=== PATIENT | female | born 1950 | race Caucasian/White ===

== ENCOUNTER 2018-12-27 19:51 | Inpatient (IN) | payer BC ==
[~2018-12-27] VITALS: Ht 172.7 cm; Wt 92.6 kg
[2018-12-27] VITALS: PULSE 86
[~2018-12-27 19:51] MED LIST: AMLO5TAB4; BENA40TA56; METO-53; TYL500 PO
[2018-12-27] MEDS ORDERED: ASPIRIN 325 MG TAB PO STA (20:04)
[2018-12-27] MEDS ORDERED: SOD CHLORIDE 0.9% 1,000 ML IV STA ×2 (20:04→21:35)
--- NOTE | 2018-12-27 20:10 | ERD ---
ER Documentation Chief Complaint Chief Complaint HPI This is a 68-year-old female who has a past medical history of hypertension and positive tobacco use. The patient was at work when she suddenly developed a sudden onset of chest pressure midsternal. The chest pressure did not radiate to the neck arm back or jaw. The patient sat down and she is felt very lightheaded and dizzy and felt as though she was in a pass out but did not have a complete transient loss of consciousness. She did indicate she also had experienced chest pain 12 hours prior to arrival which lasted for several minutes but did resolve. The patient is been compliant with all of her medications. She states she has a strong family history of coronary artery disease in both parents and her brother. She had no associated symptoms of shortness of breath. She denied a headache but as stated above she did feel lightheaded and dizzy. She had no changes in vision. She said no recent travel or prolonged immobilization. ROS All systems reviewed and are negative except as per history of present illness. Medications Home Meds Reported Medications Acetaminophen* (Tylenol*) 500 Mg Tab, 1000 MG PO Q4H PRN for PAIN AND OR ELEVATED TEMP, TAB 09/05/14 Amlodipine Besylate* (Norvasc*) 5 Mg Tablet, BID 11/23/12 Metoprolol (Lopressor) 50 Mg Tablet, BID 11/23/12 Benazepril Hcl* (Benazepril Hcl*) 40 Mg Tablet, BID 11/23/12 Allergies Allergies: Coded Allergies: meperidine (Verified Allergy, Intermediate, NAUSEA/VOMITING, 09/05/14) codeine (Verified Allergy, Mild, 11/23/12) iodine (Verified Allergy, Mild, 11/23/12) propoxyphene HCl (Verified Allergy, Mild, 11/23/12) PMhx/Soc History of Surgery: Yes (S/P L4-5 HEMILAMINECTOMY/DECOMPRESSION 09-05-14) Anesthesia Reaction: No Hx Neurological Disorder: No Hx Respiratory Disorders: Yes (ASTHMA, BRONCHITIS) Hx Cardiac Disorders: Yes (HTN) Hx Psychiatric Problems: No Hx Miscellaneous Medical Probl: Yes (HTN,ASTHMA,MIGRAINE HEADACHES,HTN,SINUS SX,HYSTERECTOMY) Hx Alcohol Use: No Hx Substance Use: No Hx Tobacco Use: No Physical Exam Vitals Vital Signs Date Temp Pulse Resp B/P (MAP) Pulse Ox O2 O2 Flow FiO2 Time Delivery Rate 12/27/18 77 20 99/57 (71) 99 Nasal 2.0 21:09 Cannula 12/27/18 Nasal 2 20:07 Cannula 12/27/18 98.2 83 22 89/68 (75) 100 20:03 Physical Exam Constitutional:Well-developed. Well-nourished. HEENT:Normocephalic. Atraumatic.Pupils were equal round reactive to light. Moist mucous membranes.No tonsillar exudates. Neck: No nuchal rigidity. No lymphadenopathy. No posterior cervical spine tenderness or step-offs. Respiratory: Not using accessory muscles of respiration.Lungs were clear to auscultation bilaterally. No rhonchi. No rales. No wheezing. Cardiovascular: Regular rate regular rhythm.No murmurs. No rubs were appreciated.S1, S2 normal. Distal pulses are palpable 2+ bilaterally. GI: Abdomen was soft. Nontender. Non Distended. No pulsatile abdominal masses or bruits. No rebound. No guarding. Bowel sounds were present and normal. Muscle skeletal: Full range of motion of both the upper and lower extremities bilaterally.Normal muscle tone.No assymetrical calf tenderness or swelling. Skin: Diaphoretic with no petechia, no purpura. No lesions on the palms or the soles of the feet. No maculopapular rash. NEURO: Patient was alert, awake, orientated x3.No facial droop. Gait observed and normal with no ataxia.Speech had regular rate and rhythm. No focal neurological deficits. Result Diagram: 12/27/18200512/27/182005 Results 24 hrs Laboratory Tests Test 12/27/18 20:06 White Blood Count 11.1 10^3/ul Red Blood Count 5.04 10^6/ul Hemoglobin 14.4 g/dl Hematocrit 45.0 % Mean Corpuscular Volume 89.3 fl Mean Corpuscular Hemoglobin 28.6 pg Mean Corpuscular Hemoglobin Concent 32.0 g/dl Red Cell Distribution Width 13.5 % Platelet Count 230 10^3/UL Mean Platelet Volume 9.5 fl Immature Granulocytes % 0.600 % Neutrophils % 71.6 % Lymphocytes % 20.8 % Monocytes % 5.8 % Eosinophils % 1.0 % Basophils % 0.2 % Nucleated Red Blood Cells % 0.0 /100WBC Immature Granulocytes # 0.070 10^3/ul Neutrophils # 7.9 10^3/ul Lymphocytes # 2.3 10^3/ul Monocytes # 0.6 10^3/ul Eosinophils # 0.1 10^3/ul Basophils # 0.0 10^3/ul Nucleated Red Blood Cells # 0.0 10^3/ul Prothrombin Time 12.6 Sec Prothrombin Time Ratio 1.0 INR International Normalized Ratio 0.93 Activated Partial Thromboplast Time 25.7 Sec Sodium Level 144 mmol/L Potassium Level 4.5 mmol/L Chloride Level 105 mmol/L Carbon Dioxide Level 24 mmol/L Anion Gap 15 Blood Urea Nitrogen 21 mg/dl Creatinine 1.58 mg/dl Est Glomerular Filtrat Rate mL/min 33 mL/min Glucose Level 138 mg/dl Calcium Level 9.9 mg/dl Total Bilirubin 0.4 mg/dl Direct Bilirubin 0.00 mg/dl Indirect Bilirubin 0.4 mg/dl Aspartate Amino Transf (AST/SGOT) 29 IU/L Alanine Aminotransferase (ALT/SGPT) 19 IU/L Alkaline Phosphatase 88 IU/L Creatine Kinase 108 IU/L Creatine Kinase Index 3.7 Creatinine Kinase MB (Mass) 4.03 ng/ml Troponin I 0.771 ng/ml B-Type Natriuretic Peptide 2590 PG/ML Total Protein 7.8 g/dl Albumin 4.1 g/dl Globulin 3.70 g/dl Albumin/Globulin Ratio 1.10 Lipase 38 U/L Current Medications Medications Dose Sig/Ian Start Time Status Last (Trade) Ordered Route PRN Stop Time Admin Dose Reason Admin Sodium 1,000 ml @ Q1H STAT 12/27/18 DC 12/27/18 Chloride 1,000 mls/hr IV 20:04 20:22 12/27/18 21:03 Aspirin 325 mg ONCE STAT 12/27/18 DC 12/27/18 (Aspirin) PO 20:04 20:22 12/27/18 20:05 Ketorolac 30 mg ONCE STAT 12/27/18 DC 12/27/18 Tromethamine IV 20:45 20:55 (Toradol) 12/27/18 20:46 Procedures/MDM The patient presented to the emergency department with chest pain. My clinical evaluation and workup was to distinguish minor causes of chest pain from acute life threatening conditions such as myocardial infarction, pulmonary embolism, aortic dissection, esophageal rupture, cardiac tamponade. The patient was placed on a cardiac cath technician and continuous pulse oximetry. IV access established by nursing staff. She was hypotensive with a blood pressure 79/59. She had been compliant with her antihypertensive medications. The patient was given a liter bolus of normal saline. She was also given aspirin. 12 Lead EKG tracing ordered and reviewed by myself showed: Normal sinus rhythm of 83 bpm and no arrhythmia. NM interval normal. QRS duration normal. No ST segment elevation. PVCs No ST segment depression. No changes consistent with acute ischemia. She had a chest radiograph which showed no infiltrates no pneumothorax or pleural effusions. The chest radiograph showed the following: Linear atelectatic changes in the right mid lung and bilateral lower lobes. No focal infiltrates. The patient did have improvement of her blood pressure after receiving IV fluids. The patient's troponin was elevated at 0.771 consistent with a non-D[place]. I spoke with the clerical warehouseman Dr. Davis who kindly stated he will be consulted on the case. The patient had significant improvement in her symptoms and now stated her chest pain was initially 8 out of 10 in intensity was now 2 out of 10 in intensity. The patient has not anaphylactic reaction to iodine. The patient will be premedicated as the patient will likely require an angiogram upon admission. The patient received prophylaxis Lovenox. The patient will be admitted in serious condition to her primary care physician Dr. Cornejo. Departure Diagnosis: Primary Impression: Hypotension Hypotension type: unspecified hypotension type Qualified Codes: I95.9 - Hypotension, unspecified Additional Impressions: Dizziness Non-STEMI (non-ST elevated myocardial infarction) Condition: Serious DIANNA LANGLEY MD Dec 27, 2018 20:10
[2018-12-27] MEDS ORDERED: KETOROLAC 30 MG INJ IV STA (20:45)
[2018-12-27] MEDS ORDERED: ATORVASTATIN 40 MG TAB PO ONE (21:30)
[2018-12-27] MEDS ORDERED: predniSONE 20 MG TAB PO ONE (21:30)
[2018-12-27] MEDS ORDERED: ENOXAPARIN 100 MG/ML SYG SC ONE (22:00)
[2018-12-27] MEDS ORDERED: ACETAMINOPHEN 325 MG TAB PO PRN (22:00)
[2018-12-27] MEDS ORDERED: ONDANSETRON 4 MG INJ IV PRN (22:00)
[2018-12-27] MEDS: SOD CHLORIDE 0.9% 1,000 ML IV SCH (22:32)
[2018-12-27 23:05] VITALS: BP 92/54; PULSE 84; PULSE 86; RESP 19
[2018-12-27 23:09] VITALS: Ht 172.7 cm; Wt 92.6 kg
[2018-12-28] VITALS (43 sets, daily range): BP systolic 88–129; BP diastolic 52–77; PULSE 70–90; RESP 15–22
[2018-12-28] MEDS ORDERED: IBUP-1542 PO (00:11)
[2018-12-28] MEDS ORDERED: ACETAMINOPHEN 325 MG TAB PO PRN (01:00)
[2018-12-28] MEDS ORDERED: predniSONE 20 MG TAB PO ONE ×2 (02:00→06:00)
[2018-12-28] MEDS ORDERED: FAMOTIDINE 20 MG INJ IV ONE (06:30)
[2018-12-28] MEDS ORDERED: DIPHENHYDRAMINE 50 MG INJ IV ONE (06:30)
[2018-12-28] MEDS ORDERED: DIPHENHYDRAMINE 50 MG INJ ONE (07:23)
[2018-12-28] MEDS ORDERED: FENTAnyl 50 MCG/ML VIAL ONE (07:24)
[2018-12-28] MEDS ORDERED: NITROGLYCERIN (IC) 100 MCG/ML INJ ONE (07:24)
[2018-12-28] MEDS ORDERED: VERAPAMIL 5 MG INJ ONE (07:24)
[2018-12-28] MEDS ORDERED: MIDAZOLAM 1 MG/ML 2 ML INJ ONE (07:24)
[2018-12-28] MEDS ORDERED: HEPARIN 1000 UNITS/ML 10 ML INJ ONE (07:24)
[2018-12-28] MEDS ORDERED: LIDOCAINE 1% (MDV) 20 ML INJ ONE (07:24)
--- NOTE | 2018-12-28 07:50 | RADRPT ---
Echocardiogram Report Patient Name: DEJAH KERRPatient ID: [id number] : 1950 (68y 3m)Study Date: 12/28/2018 6:54:27 AM Gender: FAccession #: [id number] Tech: Baltazar Swan BALWINDER Location: [id number] Ref.Physician: ALBERT GILMORE Height(Cm): BSA: Weight(Kg): Quality: AdequateAccount #: Procedures: Echocardiographic Report: Transthoracic echocardiogram with complete 2D, M-Mode, and doppler examination. Indications: elevated trop. Measurements: 2D/M Mode Doppler Measurement Value Normal Range Measurement Value Normal Range LVIDd 2D 3.6 [ 3.8 - 5.2 ] cm AV Peak Philippe 1.4 [ 100.0 - 170.0 ] cm/sec LVIDs 2D 2.1 [ 2.2 - 3.5 ] cm AV Peak PG 8.0 [ 2.0 - 9.0 ] mmHg LVPWd 2D 1.0 [ 0.6 - 0.9 ] cm LVOT Peak Philippe 1.1 [ 70.0 - 110.0 ] cm/sec IVSd 2D 1.1 [ 0.6 - 0.9 ] cm LVOT Peak PG 5.0 [ 2.0 - 6.0 ] mmHg AoR Diam 2D 2.6 [ 2.3 - 3.1 ] cm MV E Peak Philippe 0.5 [ 60.0 - 130.0 ] cm/sec EDV 2D 55.2 [ 46.0 - 106.0 ] ml MV A Peak Philippe 0.7 [ 100.0 - 120.0 ] cm/sec ESV 2D 14.1 [ 14.0 - 42.0 ] ml MV E/A 0.7 [ 0.8 - 1.5 ] ratio EF 2D 74.5 [ 54.0 - 74.0 ] percent MV Decel Time 254 [ 104 - 258 ] msec LA Dimen 2D 2.2 [ 2.7 - 3.8 ] cm Lat E` Philippe 0.1 [ 10.0 - 15.0 ] cm/sec Lateral E/E` 6.0 [ 1.0 - 2.0 ] ratio MV E/A 0.7 [ 0.8 - 1.5 ] ratio TR Peak Philippe 3.5 [ 100.0 - 280.0 ] cm/sec TR Peak PG 49.0 mmHg RVSP 64.0 [ 10.0 - 36.0 ] mmHg RA Pressure 15.0 mmHg Findings: Left Ventricle: Normal left ventricular systolic function. Normal left ventricular cavity size. Mild concentric left ventricular hypertrophy. Ejection fraction is visually estimated at 60 %. Tissue Doppler/Mitral Doppler indices are consistent with impaired relaxation (Stage I diastolic dysfunction). Right Ventricle: Moderate enlargement of right ventricle. Moderate right ventricular hypokinesis. Left Atrium: The left atrium is normal in size. Right Atrium: There is mild enlargement of right atrium. Mitral Valve: Normal appearance and function of the mitral valve with trace physiologic regurgitation. Aortic Valve: No significant aortic stenosis or insufficiency. Aortic cusps appear mildly calcified. Tricuspid Valve: Normal appearance of the tricuspid valve. Estimated peak PA systolic pressure 64 mmHg. There is moderate tricuspid regurgitation. Pulmonic Valve: Pulmonic valve not well visualized. Pericardium: Normal pericardium with no significant pericardial effusion. Aorta: Normal aortic root. IVC: Dilated IVC without respiratory collapse consistent with elevated right atrial pressure. Conclusions: Normal left ventricular systolic function. Normal left ventricular cavity size. Mild concentric left ventricular hypertrophy. Ejection fraction is visually estimated at 60 %. Tissue Doppler/Mitral Doppler indices are consistent with impaired relaxation (Stage I diastolic dysfunction). Moderate enlargement of right ventricle. Moderate right ventricular hypokinesis. The left atrium is normal in size. There is mild enlargement of right atrium. Estimated peak PA systolic pressure 64 mmHg. There is moderate tricuspid regurgitation. No significant valvular stenosis or regurgitation seen of remaining visualized valves. Normal pericardium with no significant pericardial effusion. Electronically Signed By: Albert Gilmore 2018-12-28 07:49:12 PDT
--- NOTE | 2018-12-28 08:14 | OPR ---
Date/Time of Note Date/Time of Note DATE: 12/28/18 TIME: 08:08 Operative Report Preoperative Diagnosis NSTEMI Postoperative Diagnosis Mild CAD Operation/Procedure Performed [facility] Surgeon see signature line [facility] Susan Anesthesia Type: moderate sedation Estimated Blood Loss: minimal Transfusion none Specimen none Grafts/Implants none Complications none Pt Condition Post Procedure: stable Procedure Description Preoperative Diagnosis nstemi Postoperative Diagnosis Mild CAD Operation/Procedure Performed Left heart cath right and left coronary angiography supervision/interpretation of right and left coronary angiography, EDP measurements right radial artery approach Surgeon: see signature line Physicians And Surgeons: none Anesthesia Type: other (none) Anesthesiologist: Tourniquet Time: Estimated Blood Loss: minimal Transfusion: none Specimen: none Grafts/Implants: none Tubes/Drains: Complications: none Pt Condition Post Procedure: stable Procedure Description The patient brought to the label pinker after informed consent obtained. The right radial artery was cannulated using the seldinger technique and a 5F sheath was inserted. Thereafter, bilateral selective angiography was performed using a JR4 and JL 3.5catheters , respectively and EDP pressures measured. The procedure was tolerated well without complication. Findings: LM - Normal LAD - 30% Mid CX - Normal RCA - 40% distal Plan: Medical therapy JACOBO KERNS MD Dec 28, 2018 08:14
[2018-12-28] MEDS: SOD CHLORIDE 0.9% 1,000 ML IV SCH ×2 (09:00→23:50)
[2018-12-28] MEDS ORDERED: ENOXAPARIN 100 MG/ML SYG SC SCH (09:00)
[2018-12-28] MEDS: ASPIRIN 81 MG TAB PO SCH (09:22)
--- NOTE | 2018-12-28 09:27 | CONS ---
Assessment/Plan Assessment/Plan Hospital Course (Demo Recall) Elevated troponin concerning for myocardial infarction Mild to moderate nonobstructive coronary artery disease cardiac catheterization 12/28/2018 Right ventricular dysfunction with pulmonary hypertension Preserved left ventricular systolic ejection fraction Active tobacco use Acute kidney injury, improved -Patient with symptoms of chest pain, diaphoresis and elevated troponin. She underwent coronary angiogram this morning with no evidence of obstructive coronary artery disease. -Echocardiogram performed with normal left ventricular systolic function. Her right ventricle is dilated and hypokinetic with moderate to severe pulmonary hypertension. We need to rule out pulmonary embolism as a possible etiology. She is plan for VQ scan. -Continue aspirin and statin therapy, blood pressure has been on the lower side so antihypertensives have been held -Creatinine has improved after IV fluids. Consultation Date/Type/Reason Admit Date/Time Dec 27, 2018 at 21:39 Type of Consult Cardiology Reason for Consultation Chest pain elevated troponin Date/Time of Note DATE: 12/28/18 TIME: 09:26 Hx of Present Illness This is a 68-year-old female past medical history of hypertension who presents with chest pressure and sweating. Symptoms were yesterday morning and then resolved. 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 There was some shortness of breath. Once patient was in the emergency room and received medications, symptoms resolved. She currently denies any chest pain or shortness of breath, palpitations or dizziness. 12 point review of systems was performed with all pertinent positives and negatives mentioned above and all else is negative Past Medical History Medical History: hypertension Home Meds Reported Medications Ibuprofen* (Motrin*) 600 Mg Tab, 600 MG PO for pain, TAB 12/28/18 Amlodipine Besylate* (Norvasc*) 5 Mg Tablet, BID 11/23/12 Metoprolol (Lopressor) 50 Mg Tablet, BID 11/23/12 Benazepril Hcl* (Benazepril Hcl*) 40 Mg Tablet, BID 11/23/12 Discontinued Reported Medications Acetaminophen* (Tylenol*) 500 Mg Tab, 1000 MG PO Q4H PRN for PAIN AND OR ELEVATED TEMP, TAB 09/05/14 Medications Current Medications Ondansetron HCl (Zofran Inj) 4 mg ER BRIDGE PRN IV NAUSEA/VOMITING; Start 12/27/18 at 22:00; Stop 12/28/18 at 21:59 Atorvastatin Calcium (Lipitor) 40 mg HS PO ; Start 12/28/18 at 21:00 Sodium Chloride 1,000 ml @ 75 mls/hr [id number] IV Last administered on 12/28/18at 09:00; Admin Dose 75 MLS/HR; Start 12/27/18 at 22:00 Acetaminophen (Tylenol Tab) 650 mg Q6H PRN PO MILD PAIN(1-3)OR ELEVATED TEMP; Start 12/28/18 at 01:00 Enoxaparin Sodium (Lovenox) 90 mg Q12 SC ; Start 12/28/18 at 09:00; Status Hold Aspirin (Aspirin) 81 mg DAILY PO Last administered on 12/28/18at 09:22; Admin Dose 81 MG; Start 12/28/18 at 09:00 Allergies: Coded Allergies: meperidine (Verified Allergy, Intermediate, NAUSEA/VOMITING, 09/05/14) codeine (Verified Allergy, Mild, 11/23/12) iodine (Verified Allergy, Mild, 11/23/12) propoxyphene HCl (Verified Allergy, Mild, 11/23/12) Family History Significant Family History: heart disease Social History Smoking Status: Current every day smoker Exam/Review of Systems Vital Signs Vitals Vital Signs Date Temp Pulse Resp B/P (MAP) Pulse Ox O2 O2 Flow FiO2 Time Delivery Rate 12/28/18 72 17 97/61 (73) 94 Nasal 3.0 09:19 Cannula 12/28/18 98.5 08:29 Intake and Output 12/27/18 12/27/18 12/28/18 1515:00 23:00 07:00 IntakeIntake Total 1000 ml 825 ml BalanceBalance 1000 ml 825 ml Exam Constitutional: alert, oriented (No apparent distress) Head: normocephalic Respiratory: other (Coarse breath sounds bilaterally, no wheezing) Cardiovascular: regular rate and rhythm (S1-S2 heard), systolic murmur Gastrointestinal: soft, non-tender, bowel sounds Extremities: edema (Trace) Labs Result Diagram: 12/28/185 12/28/18 0435 Results 24hrs Laboratory Tests Test 12/27/18 20:06 12/28/18 04:35 White Blood Count 11.1 #H 6.9 # Red Blood Count 5.04 4.60 Hemoglobin 14.4 13.4 Hematocrit 45.0 41.4 Mean Corpuscular Volume 89.3 90.0 Mean Corpuscular Hemoglobin 28.6 L 29.1 Mean Corpuscular Hemoglobin Concent 32.0 32.4 Red Cell Distribution Width 13.5 13.4 Platelet Count 230 197 Mean Platelet Volume 9.5 # 9.9 Immature Granulocytes % 0.600 H 0.400 Neutrophils % 71.6 85.5 H Lymphocytes % 20.8 12.0 L Monocytes % 5.8 1.9 Eosinophils % 1.0 0.1 Basophils % 0.2 0.1 Nucleated Red Blood Cells % 0.0 0.0 Immature Granulocytes # 0.070 H 0.030 Neutrophils # 7.9 H 5.9 Lymphocytes # 2.3 0.8 Monocytes # 0.6 0.1 L Eosinophils # 0.1 0.0 Basophils # 0.0 0.0 Nucleated Red Blood Cells # 0.0 0.0 Prothrombin Time 12.6 Prothrombin Time Ratio 1.0 INR International Normalized Ratio 0.93 Activated Partial Thromboplast Time 25.7 Sodium Level 144 143 Potassium Level 4.5 5.0 Chloride Level 105 107 Carbon Dioxide Level 24 25 Anion Gap 15 H 11 Blood Urea Nitrogen 21 H 24 H Creatinine 1.58 H 1.26 H Est Glomerular Filtrat Rate mL/min 33 L 42 L Glucose Level 138 135 Calcium Level 9.9 9.1 Total Bilirubin 0.4 Direct Bilirubin 0.00 Indirect Bilirubin 0.4 Aspartate Amino Transf (AST/SGOT) 29 Alanine Aminotransferase (ALT/SGPT) 19 Alkaline Phosphatase 88 Creatine Kinase 108 89 Creatine Kinase Index 3.7 3.6 Creatinine Kinase MB (Mass) 4.03 H 3.22 H Troponin I 0.771 *H 0.397 *H B-Type Natriuretic Peptide 2590 H Total Protein 7.8 Albumin 4.1 Globulin 3.70 H Albumin/Globulin Ratio 1.10 Lipase 38 Magnesium Level 1.7 Imaging Imaging ECG with sinus rhythm, normal QRS duration, nonspecific ST abnormalities Medications Medications Current Medications Ondansetron HCl (Zofran Inj) 4 mg ER BRIDGE PRN IV NAUSEA/VOMITING; Start 12/27/18 at 22:00; Stop 12/28/18 at 21:59 Atorvastatin Calcium (Lipitor) 40 mg HS PO ; Start 12/28/18 at 21:00 Sodium Chloride 1,000 ml @ 75 mls/hr [id number] IV Last administered on 12/28/18at 09:00; Admin Dose 75 MLS/HR; Start 12/27/18 at 22:00 Acetaminophen (Tylenol Tab) 650 mg Q6H PRN PO MILD PAIN(1-3)OR ELEVATED TEMP; Start 12/28/18 at 01:00 Enoxaparin Sodium (Lovenox) 90 mg Q12 SC ; Start 12/28/18 at 09:00; Status Hold Aspirin (Aspirin) 81 mg DAILY PO Last administered on 12/28/18at 09:22; Admin Dose 81 MG; Start 12/28/18 at 09:00 Albert Davis DO Dec 28, 2018 09:27
--- NOTE | 2018-12-28 14:26 | HP ---
DATE OF ADMISSION: 12/27/2018 CHIEF COMPLAINT: Chest pressure and dizziness for 1 day. 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 The patient is unable to quantify the severity. She also had some sensation of fee ling faint. The patient rested and symptoms resolved after about 30 minutes. The patient is taking a shower and went to bed. Later in the day, the patient awoke for her shift to work and went to work . The patient had a repeat episode of pressure sensation and feeling faint during her shift. The pa jocelyn reports no radiation of her symptoms. She had the dizziness, but no shortness of breath, no pa lpitations, no cough, wheeze, fever, chills or night sweats. The patient was brought to the ER. She was having some diaphoresis. Her blood pressure was noted to be low and the patient had a troponin which was elevated. EKG did not show any acute changes. The patient was given aspirin, 1 dose of Lo venox. The patient's symptoms resolved while she was in the ER. The patient was admitted for [facility]. She was seen in cardiology consult by Dr. Davis. The patient did undergo coronary an giogram and echocardiogram this morning. Angiogram showed no obstructive coronary artery disease. E cho showed normal LV function. It did show dilated hypokinetic right ventricle with moderate to gladys re pulmonary hypertension. The patient is currently resting comfortably. Denies any current pain. PAST MEDICAL HISTORY: Hypertension, hyperlipidemia, low back pain, endometriosis. OPERATIONS: Cyst lumbar spine, tonsils, exploratory laparotomy, cholecystectomy, hysterectomy, bilat eral salpingo-oophorectomy, endometriosis, nasal sinus. MEDICATIONS: 1. Norvasc 5 mg b.i.d. 2. Benazepril 40 mg b.i.d. 3. Metoprolol 50 mg b.i.d. ALLERGIES: 1. CODEINE. 2. POSSIBLY CONTRAST. SOCIAL HISTORY: The patient is half a pack per day smoker for approximately 50 years. Rare alcohol. 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 FAMILY HISTORY: Father, history of coronary artery disease. Mother, also history of coronary artery disease. Brother at 50 from an [place]. Sister with hypertension. Son with hypertension and a son who is alive and well. REVIEW OF SYSTEMS: GENERAL: The patient denies any fever, chills, night sweats, other general complaints. HEENT: The patient denies any headache, congestion, rhinorrhea, sore throat or other HEENT complaint s. RESPIRATORY: As noted in HPI. CARDIOVASCULAR: As noted in HPI. GASTROINTESTINAL: The patient denies abdominal pain, nausea, vomiting, bright red blood per rectum, melena or other GI symptoms. GENITOURINARY: The patient denies any dysuria, frequency or other symptoms. NEUROLOGIC: The patient denies any focal weakness or other focal neurologic symptoms. PHYSICAL EXAMINATION: VITAL SIGNS: Temperature 98.5, pulse 74, blood pressure 117/71, respirations 18, pulse ox 92% on 3 l iters. GENERAL APPEARANCE: This is a well-developed, well-nourished female in no acute distress. She appears nontoxic. HEENT: Normocephalic, atraumatic. Sclerae are anicteric. Oropharynx is clear. NECK: Supple. No adenopathy, no bruits. LUNGS: Clear to auscultation. CARDIAC: Regular rate and rhythm. ABDOMEN: Bowel sounds are present. Abdomen is soft, nontender, nondistended. EXTREMITIES: Without cyanosis, clubbing or edema. NEUROLOGIC: She is alert and oriented x3 with no focal neurologic findings. IMPRESSION: 1. Non-ST elevation myocardial infarction. The patient with elevated troponin, nonobstructive coron kip artery disease on catheterization and echo with preserved left ventricular function. 2. Pulmonary hypertension. 3. Hypertension. 4. Hyperlipidemia. 5. Acute kidney injury. LABORATORY DATA: White count 11.1, hemoglobin 14.4, hematocrit 45, platelets 230. Sodium 144, potas sium 4.5, chloride 105, bicarbonate 24, BUN 21, creatinine 1.58, glucose 138. Calcium 9.9, AST 29, A LT 19. CK-MB 4.03. Troponin 0.771. BNP 2590. DIAGNOSTIC DATA: EKG: Sinus rhythm at 83 with occasional PVCs, nonspecific ST-T wave changes. Ches t x-ray: Linear atelectasis, right mid and bilateral lower lobes. No focal infiltrate. IMPRESSION: 1. [id number] myocardial infarction. The patient with catheterization showing nonobstructive coronary artery disease. Echo showing normal LV function but dilated RV which is hypokinetic with mi ld to moderate severe pulmonary hypertension. 2. Pulmonary hypertension. 3. Hypertension. 4. Acute kidney injury. PLAN: Admit to telemetry. Pulmonary consult appreciated. Continue aspirin and statin. V/Q scan wa s ordered. We will hold antihypertensive medicines due to hypotension. Lovenox as per cardiology. Dictated By: MARIA A HENDERSON/STEPHANE Conf#: [id number] DID#: [id number] CC: AURORA DAVIS DO;*EndCC*
[2018-12-28] MEDS ORDERED: ATORVASTATIN 40 MG TAB PO SCH (21:00)
[2018-12-29] VITALS (9 sets, daily range): BP systolic 111–137; BP diastolic 62–70; PULSE 76–88; RESP 18
[2018-12-29] MEDS: ASPIRIN 81 MG TAB PO SCH (08:29)
--- NOTE | 2018-12-29 13:32 | PN ---
Date/Time of Note Date/Time of Note DATE: 12/29/18 TIME: 13:27 Assessment/Plan VTE Prophylaxis Risk score (from [facility] [place]0 risk: 4 SCD applied (from [facility] [place]): No SCD contraindicated: other Pharmacological prophylaxis: LMWH Lines/Catheters IV Catheter Type (from [facility]): Peripheral IV Urinary Cath still in place: No Assessment/Plan Assessment/Plan A: NSTEMI HTN pulm HTN acute kidney injury creat improved P: cont current rx plan per cardiology Result Diagram: 12/29/18 0652 12/29/18 0652 Results 24hrs Laboratory Tests Test 12/29/18 06:52 White Blood Count 13.5 #H Red Blood Count 4.82 Hemoglobin 13.9 Hematocrit 44.5 Mean Corpuscular Volume 92.3 Mean Corpuscular Hemoglobin 28.8 L Mean Corpuscular Hemoglobin Concent 31.2 L Red Cell Distribution Width 13.4 Platelet Count 228 Mean Platelet Volume 9.9 Immature Granulocytes % 0.800 H Neutrophils % 73.6 Lymphocytes % 19.7 Monocytes % 5.6 Eosinophils % 0.2 Basophils % 0.1 Nucleated Red Blood Cells % 0.0 Immature Granulocytes # 0.110 H Neutrophils # 9.9 H Lymphocytes # 2.7 Monocytes # 0.8 Eosinophils # 0.0 Basophils # 0.0 Nucleated Red Blood Cells # 0.0 Sodium Level 145 H Potassium Level 3.7 Chloride Level 107 Carbon Dioxide Level 25 Anion Gap 13 Blood Urea Nitrogen 27 H Creatinine 0.75 Est Glomerular Filtrat Rate mL/min > 60 Glucose Level 102 Calcium Level 9.5 Subjective 24 Hr Interval Summary Free Text/Dictation Pt feeling pretty good. No cp, sob, dizziness. IV removed, pt refused replacement. Had V/Q scan low probability PE. Exam/Review of Systems Exam Vitals Vital Signs Date Temp Pulse Resp B/P (MAP) Pulse Ox O2 O2 Flow FiO2 Time Delivery Rate 12/29/18 82 12:11 12/29/18 97.9 18 120/63 95 11:09 (82) 12/29/18 Nasal 3.0 07:41 Cannula Intake and Output 12/28/18 12/28/18 12/29/18 1515:00 23:00 07:00 IntakeIntake Total 225 ml 860 ml 1150 ml BalanceBalance 225 ml 860 ml 1150 ml Exam gen- nad, nontoxic lungs- CTA heart- RRR abd- +BS, soft, nontender ext- no edema Results Results 24hrs Laboratory Tests Test 12/29/18 06:52 White Blood Count 13.5 #H Red Blood Count 4.82 Hemoglobin 13.9 Hematocrit 44.5 Mean Corpuscular Volume 92.3 Mean Corpuscular Hemoglobin 28.8 L Mean Corpuscular Hemoglobin Concent 31.2 L Red Cell Distribution Width 13.4 Platelet Count 228 Mean Platelet Volume 9.9 Immature Granulocytes % 0.800 H Neutrophils % 73.6 Lymphocytes % 19.7 Monocytes % 5.6 Eosinophils % 0.2 Basophils % 0.1 Nucleated Red Blood Cells % 0.0 Immature Granulocytes # 0.110 H Neutrophils # 9.9 H Lymphocytes # 2.7 Monocytes # 0.8 Eosinophils # 0.0 Basophils # 0.0 Nucleated Red Blood Cells # 0.0 Sodium Level 145 H Potassium Level 3.7 Chloride Level 107 Carbon Dioxide Level 25 Anion Gap 13 Blood Urea Nitrogen 27 H Creatinine 0.75 Est Glomerular Filtrat Rate mL/min > 60 Glucose Level 102 Calcium Level 9.5 Medications Medication Current Medications Atorvastatin Calcium (Lipitor) 40 mg HS PO Last administered on 12/28/18at 20:26; Admin Dose 40 MG; Start 12/28/18 at 21:00 Sodium Chloride 1,000 ml @ 75 mls/hr [id number] IV Last administered on 12/28/18at 09:00; Admin Dose 75 MLS/HR; Start 12/27/18 at 22:00 Acetaminophen (Tylenol Tab) 650 mg Q6H PRN PO MILD PAIN(1-3)OR ELEVATED TEMP; Start 12/28/18 at 01:00 Enoxaparin Sodium (Lovenox) 90 mg Q12 SC ; Start 12/28/18 at 09:00; Status Hold Aspirin (Aspirin) 81 mg DAILY PO Last administered on 12/29/18at 08:29; Admin Dose 81 MG; Start 12/28/18 at 09:00 MARIA A ALLRED MD Dec 29, 2018 13:32
[2018-12-29] MEDS: SOD CHLORIDE 0.9% 1,000 ML IV SCH (14:00)
[2018-12-29] MEDS ORDERED: METOPROLOL (XL) 25 MG TAB PO SCH (16:00)
--- NOTE | 2018-12-29 17:23 | PDOCDIS ---
Discharge Instructions CONDITION [id number] Patient Condition: [id number] Stable FOLLOW UP/APPOINTMENTS Follow-up Plan stop smoking f/u with Dr. Davis in 1-2 weeks, with Dr. Allred in 1week MARIA A ALLRED MD Dec 29, 2018 17:23
[2018-12-29] MEDS ORDERED: ATOR40TA68 PO (17:26)
[2018-12-29] MEDS ORDERED: METO-335 PO (17:26)
[2018-12-29] MEDS ORDERED: ASPI-831 PO (17:26)
--- NOTE | 2018-12-29 17:58 | CONS ---
Assessment/Plan Assessment/Plan Hospital Course (Demo Recall) Elevated troponin Mild to moderate nonobstructive coronary artery disease cardiac catheterization 12/28/2018 Right ventricular dysfunction with pulmonary hypertension Preserved left ventricular systolic ejection fraction Low probability VQ scan 12/28/2018 Active tobacco use Acute kidney injury, improved -Patient with symptoms of chest pain, diaphoresis and elevated troponin. She underwent coronary angiogram this morning with no evidence of obstructive coronary artery disease. -Echocardiogram performed with normal left ventricular systolic function. Her right ventricle is dilated and hypokinetic with moderate to severe pulmonary hypertension. -VQ scan low probability for pulmonary emboli -Continue aspirin and statin therapy, beta-burt as tolerated -Smoking cessation, pulmonary evaluation including possible sleep study, this can be done as an outpatient -DC planning Consultation Date/Type/Reason Admit Date/Time Dec 27, 2018 at 21:39 Initial Consult Date Type of Consult Cardiology Date/Time of Note DATE: 12/29/18 TIME: 17:56 24 HR Interval Summary Free Text/Dictation Denies chest pain, shortness of breath, palpitations or dizziness Exam/Review of Systems Vital Signs Vitals Vital Signs Date Temp Pulse Resp B/P (MAP) Pulse Ox O2 O2 Flow FiO2 Time Delivery Rate 12/29/18 85 16:14 12/29/18 98.3 18 116/65 95 15:12 (82) 12/29/18 Nasal 3.0 07:41 Cannula Intake and Output 12/28/18 12/28/18 12/29/18 1515:00 23:00 07:00 IntakeIntake Total 225 ml 860 ml 1150 ml BalanceBalance 225 ml 860 ml 1150 ml Exam Constitutional: alert, oriented (No apparent distress) Respiratory: other (Coarse breath sounds bilaterally, no wheezing) Cardiovascular: regular rate and rhythm (S1-S2 heard) Gastrointestinal: soft, non-tender, bowel sounds Extremities: edema (Trace) Labs Result Diagram: 12/29/18 0652 12/29/18 0652 Results 24hrs Laboratory Tests Test 12/29/18 06:52 White Blood Count 13.5 #H Red Blood Count 4.82 Hemoglobin 13.9 Hematocrit 44.5 Mean Corpuscular Volume 92.3 Mean Corpuscular Hemoglobin 28.8 L Mean Corpuscular Hemoglobin Concent 31.2 L Red Cell Distribution Width 13.4 Platelet Count 228 Mean Platelet Volume 9.9 Immature Granulocytes % 0.800 H Neutrophils % 73.6 Lymphocytes % 19.7 Monocytes % 5.6 Eosinophils % 0.2 Basophils % 0.1 Nucleated Red Blood Cells % 0.0 Immature Granulocytes # 0.110 H Neutrophils # 9.9 H Lymphocytes # 2.7 Monocytes # 0.8 Eosinophils # 0.0 Basophils # 0.0 Nucleated Red Blood Cells # 0.0 Sodium Level 145 H Potassium Level 3.7 Chloride Level 107 Carbon Dioxide Level 25 Anion Gap 13 Blood Urea Nitrogen 27 H Creatinine 0.75 Est Glomerular Filtrat Rate mL/min > 60 Glucose Level 102 Calcium Level 9.5 Medications Medications Current Medications Atorvastatin Calcium (Lipitor) 40 mg HS PO Last administered on 12/28/18 20: 26; Admin Dose 40 MG; Start 12/28/18 at 21:00 Sodium Chloride 1,000 ml @ 75 mls/hr [id number] IV Last administered on 12/28/18 09:00; Admin Dose 75 MLS/HR; Start 12/27/18 at 22:00 Acetaminophen (Tylenol Tab) 650 mg Q6H PRN PO MILD PAIN(1-3)OR ELEVATED TEMP; Start 12/28/18 at 01:00 Enoxaparin Sodium (Lovenox) 90 mg Q12 SC ; Start 12/28/18 at 09:00; Status Hold Aspirin (Aspirin) 81 mg DAILY PO Last administered on 12/29/18at 08:29; Admin Dose 81 MG; Start 12/28/18 at 09:00 Metoprolol Succinate (Toprol Xl) 25 mg DAILY PO Last administered on 12/29/18at 16:27; Admin Dose 25 MG; Start 12/29/18 at 16:00 Albert Davis DO Dec 29, 2018 17:58
--- NOTE | 2018-12-29 20:06 | DS ---
DATE OF ADMISSION: 12/27/2018 DATE OF DISCHARGE: 12/29/2018 DISCHARGE DIAGNOSES: 1. Non-ST elevation myocardial infarction. 2. Pulmonary hypertension. 3. Acute kidney injury. 4. Hypertension. PROCEDURES: A 2D echocardiogram, coronary angiography, V/Q scan. CONSULTANTS: Cardiology, Dr. 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 She returned from her [employer] shift [employer] and noted some chest pressure s ubsternally. The patient is unable to quantify the severity. The patient has some sensation of feel ing faint. She rested and her symptoms resolved about 30 minutes. The patient took a shower and nicole t to bed. She woke up later in the day to get ready for her shift at work and patient did come to wo rk and had a repeat episode of pressure sensation and feeling faint. The patient also had some diaph oresis. No radiation of her pressure. She denied any shortness of breath, palpitations, cough, whee ze, fever, chills or night sweats. The patient was brought to the ER. She was noted to be hypotensi ve and had an elevated troponin. EKG did not show any acute changes. The patient was given aspirin, one dose of Lovenox and was given IV fluids. The patient's symptoms resolved while she was in the E R. The patient was admitted for further management. PHYSICAL EXAMINATION: VITAL SIGNS: On admission notable for temperature 98.5, pulse 74, blood pressure increased to 117/71 , respirations 18, pulse ox 92% on 3 liters. GENERAL APPEARANCE: The patient was in no acute distress. She appeared nontoxic. LUNGS: Clear to auscultation. CARDIAC: Regular rate and rhythm. EXTREMITIES: Without cyanosis, clubbing or edema. NEUROLOGIC: She was alert and oriented x3 with no focal neurologic findings. LABORATORY DATA: Notable for white count 11.1, hemoglobin 14.4, hematocrit 45, platelets 230. Sodiu m was 144, potassium 4.5, BUN was 21, creatinine 1.58, glucose 138. CK-MB was 4.03. Troponin 0.771. BNP was 2590. DIAGNOSTIC DATA: EKG: Sinus rhythm at 83, occasional PVCs, nonspecific ST-T wave changes. Chest x- ray showed linear atelectasis, mild right mid and bilateral lower lobe atelectasis, no focal infiltra derrick. HOSPITAL COURSE: 1. Non-ST elevation myocardial infarction. The patient was given aspirin and also Lovenox. Initial ly, the patient did undergo echocardiogram which showed preserved LV function but did show some pulmo nary hypertension. The patient underwent coronary angiography which showed nonobstructive coronary a rtery disease. The patient remained asymptomatic during hospitalization. When her blood pressure ca n tolerate, she was begun on Toprol-XL and continued on her aspirin. She also has been started on Li pitor, which she will continue as an outpatient. The patient will be kept off work for 2 weeks and u ltimate duration to be determined. The patient has been advised to stop smoking, to monitor blood pr essure at home, follow up with cardiology and myself. 2. Pulmonary hypertension. The patient with pulmonary hypertension noted on echocardiogram. The pa tient did undergo V/Q scan which was low probability for PE. The patient does have a long smoking hi story and felt most likely secondary to element of COPD to be followed up with repeat echo in a few m [facility]. 3. Acute kidney injury. The patient initially presented with elevated creatinine. The patient felt to be dehydrated. She was hydrated with improvement and normalization of her creatinine during hosp italization. 4. Hypertension. The patient with history of hypertension on multiple medications, although hypoten sive when presenting. Blood pressure meds were held. When blood pressure did increase, the patient was begun on Toprol-XL 25 mg which she will continue as an outpatient. 5. Leukocytosis. The patient with elevated white blood cell count which initially improved after hy dration. It increased again subsequently, but the patient did require steroids prior to administrati on of IV dye for which she was potentially allergic. The patient otherwise without localizing sympto ms or findings of infection, so will be monitored as an outpatient. DISPOSITION: Discharged the patient home. DISCHARGE CONDITION: Stable. DISCHARGE MEDICATIONS: 1. Toprol-XL 25 mg p.o. daily. 2. Atorvastatin 40 mg nightly. 3. Aspirin 81 mg daily. DISCHARGE INSTRUCTIONS: The patient has been strongly advised to stop smoking. FOLLOWUP: The patient will follow up with Dr. Davis in 1 to 2 weeks. Follow up with me in 1 week. The patient is initially to be off work for 2 weeks and reevaluated subsequently to determine final duration of her time off work. Plan per Dr. Davis is to repeat echo in about 3 months to reassess p ulmonary hypertension. Dictated By: MARIA A HENDERSON/STEPHANE Conf#: [id number] DID#: [id number] CC: ALBERT DAVIS DO;*End*
== END 2018-12-29 18:07 | disposition home or self-care (01) | DRG 281 ==
LOC: E/R 19:51 → TEL 21:39
PROVIDERS: ADMIT Internal Medicine; ATTEND Internal Medicine
PROC: B216YZZ Fluoroscopy of Right and Left Heart using Other Contrast (ICD-10-PCS; 2018-12-28)
PROC: B211YZZ Fluoroscopy of Multiple Coronary Arteries using Other Contrast (ICD-10-PCS; 2018-12-28)
PROC: 4A023N7 Measurement of Cardiac Sampling and Pressure, Left Heart, Percutaneous Approach (ICD-10-PCS; principal; 2018-12-28 07:30)
DX: I21.4 Non-ST elevation (NSTEMI) myocardial infarction (principal); N17.9 Acute kidney failure, unspecified; I27.20 Pulmonary hypertension, unspecified; I25.10 Atherosclerotic heart disease of native coronary artery without angina pectoris; I10 Essential (primary) hypertension; E78.5 Hyperlipidemia, unspecified; F17.200 Nicotine dependence, unspecified, uncomplicated; Z79.82 Long term (current) use of aspirin
CPT/HCPCS: 71045; 78582; 80048; 80053; 82550; 82553; 83690; 83735; 83880; 84484; 85025; 85610; 85730; 93005; 93306; 93458; 96361; 96374; A9540; C1887; J1200; J1644; J1650; J1885; J2250; J3010; J7030; J7512